=== PATIENT | male | born 1945 | race Caucasian/White ===

== ENCOUNTER 2020-10-11 09:35 | Day surgery (SDC) | payer OTHER, MEDICARE ==
[~2020-10-11 09:35] MED LIST: Lactated Ringers 1,000 ML IV SCH; Midazolam 1 MG/ML 2 ML SDV ONE; Propofol 200 MG/20 ML SDV ONE
--- NOTE | 2020-10-11 11:08 | PCM.PREANE ---
Preanesthetic Assessment - Anesthesia/Transfusion/Family Hx Anesthesia History: Prior Anesthesia Without Reaction Transfusion History: No Prior Transfusion(s) - Review of Systems General: No Symptoms Pulmonary: No Symptoms Cardiovascular: No Symptoms Gastrointestinal: No Symptoms Neurological: No Symptoms Other: Reports: None - Physical Assessment NPO Status Date: 10/11/20 NPO Status Time: 00:00 Vital Signs: Last Vital Signs Temp 96.8 F L 10/11/20 09:45 Pulse 67 10/11/20 09:45 Resp 16 10/11/20 09:45 BP 149/93 H 10/11/20 09:45 Pulse Ox 95 10/11/20 09:45 Height: 5 ft 6 in Weight: 164 lb ASA Class: 3 Mental Status: Alert & Oriented x3 Dentition: Reports: Normal Dentition Thyro-Mental Finger Breadths: 4 Mouth Opening Finger Breadths: 4 ROM/Head Extension: Full Lungs: Clear to Auscultation, Normal Respiratory Effort Cardiovascular: Regular Rate, Regular Rhythm - Allergies Allergies/Adverse Reactions: Allergies Allergy/AdvReac Type Severity Reaction Status Date / Time No Known Allergies Allergy Verified 10/05/20 08:13 - Acknowledgements Anesthesia Type Planned: General Anesthesia Pt an Appropriate Candidate for the Planned Anesthesia: Yes Alternatives and Risks of Anesthesia Discussed w Pt/Guardian: Yes Pt/Guardian Understands and Agrees with Anesthesia Plan: Yes PreAnesthesia Questionnaire HEENT History: Reports: Hard of Hearing, Other (See Below) Other HEENT History: reading glasses, dental implants, joesph hearing aids Cardiovascular History: Reports: Other (See Below) Other Cardiovascular History: situational elevated BP Respiratory History: Reports: Asthma, COPD Gastrointestinal History: Reports: Irritable Bowel Syndrome Genitourinary History: Reports: None, BPH Musculoskeletal History: Reports: Fracture Other Musculoskeletal History: hx fx arm Neurological History: Reports: Brain Injury Psychiatric History: Reports: None Endocrine/Metabolic History: Reports: None Hematologic History: Reports: None Immunologic History: Reports: None Oncologic (Cancer) History: Reports: None Dermatologic History: Reports: Psoriasis - Past Surgical History Head Surgeries/Procedures: Reports: None HEENT Surgical History: Reports: Cataract Surgery, Oral Surgery Cardiovascular Surgical History: Reports: None Respiratory Surgical History: Reports: None GI Surgical History: Reports: Colonoscopy Male Surgical History: Reports: None Endocrine Surgical History: Reports: None Neurological Surgical History: Reports: None Musculoskeletal Surgical History: Reports: Other (See Below) Other Musculoskeletal Surgeries/Procedures:: sx for fx arm Oncologic Surgical History: Reports: None Dermatological Surgical History: Reports: Skin Biopsy - SUBSTANCE USE Tobacco Use Status *Q: Former Tobacco User Tobacco Use Within Last Twelve Months: No Days Per Week of Alcohol Use: 7 Number of Drinks Per Day: 2 Total Drinks Per Week: 14 - HOME MEDS Home Medications: Home Meds Albuterol [Ventolin HFA] 1 - 2 puff INH ASDIRECTED PRN 10/05/20 [History] Aspirin [Adult Aspirin Regimen] 81 mg PO DAILY 10/05/20 [History] Budesonide/Formoterol Fumarate [Symbicort 160-4.5 Mcg Inhaler] 1 puff INH BID 10/05/20 [History] Cholecalciferol (Vitamin D3) [Vitamin D3] 1,000 units PO DAILY 10/05/20 [History] Dextrin [Fiber] 1 dose PO ASDIRECTED 10/05/20 [History] FLUoxetine HCl [Fluoxetine HCl] 20 mg PO DAILY 10/05/20 [History] Flaxseed Oil [Flax Oil] 1 tab PO DAILY 10/05/20 [History] Levothyroxine Sodium [Levoxyl] 100 mcg PO DAILY 10/05/20 [History] Multivitamin 1 tab PO DAILY 10/05/20 [History] Ubidecarenone [COQ-10] 10 mg PO DAILY 10/05/20 [History] Vitamin B Complex 1 tab PO DAILY 10/05/20 [History] - CURRENT (IN HOUSE) MEDS Current Meds: Current Medications Lactated Ringer's (Ringers, Lactated) 1,000 mls @ 125 mls/hr IV ASDIRECTED [facility] Last Admin: 10/11/20 10:10 Dose: 125 mls/hr Documented by: Discontinued Medications Midazolam HCl (Midazolam 1 Mg/Ml 2 Ml Sdv) Confirm Administered Dose 2 mg .ROUTE .STK-MED ONE Stop: 10/11/20 07:26 Propofol (Propofol 200 Mg/20 Ml Sdv) Confirm Administered Dose 600 mg .ROUTE .STK-MED ONE Stop: 10/11/20 07:26
--- NOTE | 2020-10-11 11:27 | PCM.OPNOTE ---
- General Post-Op/Procedure Note Date of Surgery/Procedure: 10/11/20 Operative Procedure(s): Colonoscopy Findings: normal colonoscopy dictation number [id number] Pre Op Diagnosis: screening colonoscopy Post-Op Diagnosis: normal colonoscopy. external hemorrhoidal skin tag Primary Surgeon: Gustavo Mark Pathology: none Complications: None Condition: Good
--- NOTE | 2020-10-11 12:43 | PCM.POSTAN ---
POST ANESTHESIA ASSESSMENT - MENTAL STATUS Mental Status: Alert, Oriented - VITAL SIGNS Vital Signs: Last Vital Signs Temp 96.4 F L 10/11/20 11:54 Pulse 45 L 10/11/20 11:54 Resp 14 10/11/20 11:54 BP 139/76 10/11/20 11:54 Pulse Ox 95 10/11/20 11:54 - RESPIRATORY Respiratory Status: Respiratory Rate WNL, Airway Patent, O2 Saturation Stable - CARDIOVASCULAR CV Status: Pulse Rate WNL, Blood Pressure Stable - GASTROINTESTINAL GI Status: No Symptoms - POST OP HYDRATION Hydration Status: Adequate & Stable
--- NOTE | 2020-10-11 12:44 | PCM48HPAN ---
Post Anesthesia Note - EVALUATION WITHIN 48HRS OF ANESTHETIC Vital Signs in Normal Range: Yes Patient Participated in Evaluation: Yes Respiratory Function Stable: Yes Airway Patent: Yes Cardiovascular Function Stable: Yes Hydration Status Stable: Yes Pain Control Satisfactory: Yes Nausea and Vomiting Control Satisfactory: Yes Mental Status Recovered: Yes Vital Signs: Last Vital Signs Temp 96.4 F L 10/11/20 11:54 Pulse 45 L 10/11/20 11:54 Resp 14 10/11/20 11:54 BP 139/76 10/11/20 11:54 Pulse Ox 95 10/11/20 11:54
--- NOTE | 2020-10-11 15:50 | OR ---
SURGEON: BECKY TRIPATHI MD DATE OF PROCEDURE: 10/11/2020 PREOPERATIVE DIAGNOSIS: Screening colonoscopy. POSTOPERATIVE DIAGNOSIS: Normal colonoscopy. PRIMARY SURGEON: Becky Tripathi MD ANESTHESIA: With Anesthesiology. EXTENT OF THE COLONOSCOPY: To the cecum. BOWEL PREP: Very good. LIMITATIONS: None. REASON FOR PROCEDURE: The patient is a pleasant 75-year-old gentleman who originally said his last colonoscopy was about 10 years ago and was normal. However, this morning, he now says his last one was about 17 years ago at [facility] and he had a polyp removed. The patient said he does have occasional blood in his stools, but says this is with flare-ups of his hemorrhoids. He denies any family history of colon cancer. PROCEDURE IN DETAIL: Physical examination was performed. The major risks and benefits associated with the procedure were explained to the patient in detail. The patient verbalized understanding and was in agreement with the same. The patient was then connected to the appropriate monitoring devices, and IV was started. EKG, pulse oximetry, blood pressure, and capnography were monitored throughout the entire procedure. Oxygen and sedation were provided by the anesthesiologist. The patient was placed in left lateral decubitus position. Sedation was began. After adequate sedation was achieved, a digital rectal exam was performed. No rectal masses or polyps were felt. The patient did have a very long hemorrhoidal skin tag. Now, a well-lubricated Olympus colonoscope was inserted into the rectum and advanced under direct visualization to the level of the cecum. Cecum was identified by both visual and anatomic landmarks. Photographs were taken of the cecal cap. The scope was then slowly withdrawn in a circular fashion looking at the color, texture, anatomy, and integrity of mucosa from the cecum to the anal canal. The patient had a very good bowel prep with just some minimal liquid stools in the cecum which was suctioned and irrigated out for a good look at the mucosa. No polyps or masses were seen in the colon. Scope was retroflexed in the rectum. Scope was completely removed and the procedure was terminated. ENDOSCOPIC DIAGNOSES: 1. Normal colonoscopy. 2. Hemorrhoidal skin tissue. RECOMMENDATIONS: Followup colonoscopy in 10 years or sooner if he develops signs and symptoms such as change in bowel habits or blood in the stool. He may follow up in clinic if he wants for possible removal of the external hemorrhoidal skin tissue. CECIL / YANI /[id number]
== END 2020-10-11 12:30 | disposition home or self-care (01) ==
LOC: MW.SDS 09:35
PROVIDERS: ATTEND Surgery
DX: K64.9 Unspecified hemorrhoids (principal); J44.9 Chronic obstructive pulmonary disease, unspecified; E03.9 Hypothyroidism, unspecified; Z79.82 Long term (current) use of aspirin; Z79.899 Other long term (current) drug therapy; Z79.890 Hormone replacement therapy; Z98.890 Other specified postprocedural states
CPT/HCPCS: 45378; J2250; J2704; J7120; 00811; 99100

== ENCOUNTER 2021-09-14 23:43 | Emergency (ER) | payer MEDICARE, OTHER | END 2021-09-15 01:13 | disposition home or self-care (01) | LOC: MW.ED 23:43 | DX: K40.90 Unilateral inguinal hernia, without obstruction or gangrene, not specified as recurrent (principal); J44.9 Chronic obstructive pulmonary disease, unspecified; Z79.899 Other long term (current) drug therapy | CPT/HCPCS: 99283 ==

== ENCOUNTER 2021-12-05 08:11 | Emergency (ER) | payer MEDICARE, OTHER ==
[2021-12-05] MEDS ORDERED: Sodium Chloride 0.9% 1,000 ML IV ONE (08:57)
[2021-12-05] MEDS ORDERED: Sodium Chloride 0.9% 2.5 ML Syringe FLUSH PRN (08:57)
[2021-12-05] MEDS ORDERED: Sodium Chloride 0.9% 10 ML Syringe FLUSH PRN (08:57)
[2021-12-05] MEDS ORDERED: fentaNYL 50 MCG/ML SDV IVPUSH ONE (09:14)
[2021-12-05] MEDS ORDERED: Ondansetron 4 MG/2 ML SDV IVPUSH ONE (09:14)
[2021-12-05] MEDS ORDERED: Ketorolac 30 MG/ML SDV IVPUSH ONE (09:15)
[2021-12-05 10:00] LABS: CARBON DIOXIDE,CO2 23.8 mmol/L (21.0-32.0); POTASSIUM,K 4.1 mmol/L (3.5-5.1)
[2021-12-05] MEDS ORDERED: Iopamidol 755 MG/ML 500 ML Multipack Bottle IVPUSH STA (10:33)
== END 2021-12-05 11:57 | disposition home or self-care (01) ==
LOC: MW.ED 08:11
DX: K40.90 Unilateral inguinal hernia, without obstruction or gangrene, not specified as recurrent (principal); J45.909 Unspecified asthma, uncomplicated; Z79.899 Other long term (current) drug therapy
CPT/HCPCS: 36415; 74177; 80053; 81003; 83605; 83690; 85025; 96361; 96374; 96375; 99284; J1885; J2405; J3010; J3490; J7030; Q9967

== ENCOUNTER 2022-09-05 12:52 | Emergency (ER) | payer MEDICARE, OTHER | END 2022-09-05 14:38 | disposition home or self-care (01) | LOC: MW.ED 12:52 | DX: B86 Scabies (principal); J44.9 Chronic obstructive pulmonary disease, unspecified | CPT/HCPCS: 99282; 99283 ==

== ENCOUNTER 2023-01-19 17:49 | Emergency (ER) | payer MEDICARE, OTHER ==
[2023-01-19] MEDS ORDERED: Cephalexin 500 MG Cap PO ONE (18:08)
== END 2023-01-19 18:25 | disposition home or self-care (01) ==
LOC: MW.ED 17:49
DX: L03.116 Cellulitis of left lower limb (principal); J44.9 Chronic obstructive pulmonary disease, unspecified; Z79.899 Other long term (current) drug therapy
CPT/HCPCS: 99282; A9270; 99283

== ENCOUNTER 2023-03-25 03:55 | Emergency (ER) | payer MEDICARE, OTHER | END 2023-03-25 04:40 | disposition home or self-care (01) | LOC: MW.ED 03:55 | DX: L03.116 Cellulitis of left lower limb (principal); Z79.899 Other long term (current) drug therapy | CPT/HCPCS: 99283 ==

== ENCOUNTER 2023-03-28 20:53 | Emergency (ER) | payer MEDICARE, OTHER ==
[2023-03-28] MEDS ORDERED: Sodium Chloride 0.9% 1,000 ML IV ONE (21:11)
[2023-03-28] MEDS ORDERED: Ondansetron 4 MG/2 ML SDV IVPUSH ONE (21:11)
[2023-03-28 21:23] LABS: BASOPHILS ABSOLUTE AUTO 0.08 K/uL (0.00-0.20); BASOPHILS PERCENT AUTO 1.7 % (0.0-1.0); EOSINOPHILS ABSOLUTE AUTO 0.54 K/uL (0.00-0.45); EOSINOPHILS PERCENT AUTO 11.6 % (0.0-6.0); HEMATOCRIT 40.9 % (42.0-52.0); HEMOGLOBIN 14.6 g/dL (14.0-18.0); IMMATURE GRAN ABSOLUTE AUTO 0.01 K/uL (0.00-0.05); IMMATURE GRAN PERCENT AUTO 0.2 % (0.0-0.4); LYMPHOCYTES ABSOLUTE AUTO 1.33 K/uL (1.00-4.80); LYMPHOCYTES PERCENT AUTO 28.5 % (24.0-44.0); MEAN CORPUSCULAR HEMOGLOBIN 32.7 pg (28.0-32.0); MEAN CORPUSCULAR HGB CONC 35.7 g/dL (32.0-36.0); MEAN CORPUSCULAR VOLUME 91.5 fL (83.0-99.0); MONOCYTES ABSOLUTE AUTO 0.36 K/uL (0.00-0.80); MONOCYTES PERCENT AUTO 7.7 % (0.0-8.0); NEUTROPHILS ABSOLUTE AUTO 2.34 K/uL (1.80-7.70); NEUTROPHILS PERCENT AUTO 50.3 % (41.0-71.0); PLATELET COUNT,PLT 253 K/uL (150-400); RED BLOOD CELL COUNT 4.47 M/uL (4.52-5.90); WHITE BLOOD CELL COUNT,WBC 4.66 K/uL (3.9-11.3)
[2023-03-28 21:50] LABS: ALBUMIN 3.7 g/dL (3.4-5.0); BILIRUBIN TOTAL 0.5 mg/dL (0.2-1.0); CALCIUM 9.4 mg/dL (8.5-10.1); CARBON DIOXIDE,CO2 27.2 mmol/L (21.0-32.0); CREATININE 1.3 mg/dL (0.8-1.3); EST CRCL DRUG DOSING (CG) 42.37 mL/min; POTASSIUM,K 4.2 mmol/L (3.5-5.1); PROTEIN TOTAL,TP 7.5 g/dL (6.4-8.2)
[2023-03-28] MEDS ORDERED: Acetaminophen 500 MG Tab PO ONE (22:04)
[2023-03-28] MEDS ORDERED: Iopamidol 755 MG/ML 500 ML Multipack Bottle IVPUSH ONE (22:09)
[2023-03-28 23:30] LABS: APPEARANCE,URINE CLEAR; BILIRUBIN,URINE NEGATIVE (NEGATIVE); COLOR,URINE YELLOW; GLUCOSE,URINE NEGATIVE (NEGATIVE); KETONES,URINE NEGATIVE (NEGATIVE); LEUKOCYTE ESTERASE,URINE TRACE (NEGATIVE); NITRITE,URINE NEGATIVE (NEGATIVE); OCCULT BLOOD,URINE SMALL (NEGATIVE); PH,URINE 5.5 (5.0-8.0); PROTEIN,URINE NEGATIVE (NEGATIVE); UROBILINOGEN,URINE 0.2 EU/dL (<2.0)
[2023-03-28 23:34] LABS: BACTERIA,URINE RARE (NEGATIVE); EPITHELIAL CELLS,URINE OCCASIONAL (NONE-FEW); HYALINE CASTS,URINE 0-1 (0-2/LPF)
== END 2023-03-29 01:18 | disposition home or self-care (01) ==
LOC: MW.ED 20:53
DX: K40.90 Unilateral inguinal hernia, without obstruction or gangrene, not specified as recurrent (principal); N13.2 Hydronephrosis with renal and ureteral calculous obstruction; J44.9 Chronic obstructive pulmonary disease, unspecified; Z79.899 Other long term (current) drug therapy
CPT/HCPCS: 36415; 74177; 80053; 81001; 85025; 87086; 96361; 96374; 99284; A9270; J2405; J7030; Q9967

== ENCOUNTER 2023-04-04 13:14 | Emergency (ER) | payer MEDICARE, OTHER | END 2023-04-04 15:10 | disposition home or self-care (01) | LOC: MW.ED 13:14 | DX: L03.116 Cellulitis of left lower limb (principal); J44.9 Chronic obstructive pulmonary disease, unspecified; Z79.899 Other long term (current) drug therapy | CPT/HCPCS: 99283 ==

== ENCOUNTER 2023-04-14 15:38 | Emergency (ER) | payer MEDICARE, OTHER ==
[2023-04-14] MEDS ORDERED: Sodium Chloride 0.9% 10 ML Syringe FLUSH PRN (16:19)
[2023-04-14] MEDS ORDERED: Morphine 2 MG/ML SYRINGE IVPUSH STA (16:19)
[2023-04-14] MEDS ORDERED: Sodium Chloride 0.9% 2.5 ML Syringe FLUSH PRN (16:19)
[2023-04-14] MEDS ORDERED: Ondansetron 4 MG/2 ML SDV IVPUSH STA (16:19)
[2023-04-14 16:53] LABS: BASOPHILS ABSOLUTE AUTO 0.07 K/uL (0.00-0.20); BASOPHILS PERCENT AUTO 1.1 % (0.0-1.0); EOSINOPHILS ABSOLUTE AUTO 0.24 K/uL (0.00-0.45); EOSINOPHILS PERCENT AUTO 3.9 % (0.0-6.0); HEMATOCRIT 38.9 % (42.0-52.0); HEMOGLOBIN 13.8 g/dL (14.0-18.0); IMMATURE GRAN ABSOLUTE AUTO 0.02 K/uL (0.00-0.05); IMMATURE GRAN PERCENT AUTO 0.3 % (0.0-0.4); LYMPHOCYTES ABSOLUTE AUTO 0.89 K/uL (1.00-4.80); LYMPHOCYTES PERCENT AUTO 14.5 % (24.0-44.0); MEAN CORPUSCULAR HEMOGLOBIN 32.9 pg (28.0-32.0); MEAN CORPUSCULAR HGB CONC 35.5 g/dL (32.0-36.0); MEAN CORPUSCULAR VOLUME 92.6 fL (83.0-99.0); MONOCYTES ABSOLUTE AUTO 0.51 K/uL (0.00-0.80); MONOCYTES PERCENT AUTO 8.3 % (0.0-8.0); NEUTROPHILS ABSOLUTE AUTO 4.42 K/uL (1.80-7.70); NEUTROPHILS PERCENT AUTO 71.9 % (41.0-71.0); PLATELET COUNT,PLT 236 K/uL (150-400); WHITE BLOOD CELL COUNT,WBC 6.15 K/uL (3.9-11.3)
[2023-04-14 17:12] LABS: ALBUMIN 3.5 g/dL (3.4-5.0); BILIRUBIN TOTAL 0.3 mg/dL (0.2-1.0); CALCIUM 9.3 mg/dL (8.5-10.1); CARBON DIOXIDE,CO2 28.1 mmol/L (21.0-32.0); EST CRCL DRUG DOSING (CG) 55.08 mL/min; POTASSIUM,K 4.1 mmol/L (3.5-5.1); PROTEIN TOTAL,TP 6.9 g/dL (6.4-8.2)
== END 2023-04-14 17:48 | disposition home or self-care (01) ==
LOC: MW.ED 15:38
DX: K40.90 Unilateral inguinal hernia, without obstruction or gangrene, not specified as recurrent (principal); J44.9 Chronic obstructive pulmonary disease, unspecified
CPT/HCPCS: 36415; 80053; 83605; 85025; 96374; 96375; 99283; J2270; J2405; J3490

== ENCOUNTER 2023-04-18 13:53 | Emergency (ER) | payer MEDICARE, OTHER | END 2023-04-18 15:03 | disposition left against medical advice (07) | LOC: MW.ED 13:53 | DX: Z53.21 Procedure and treatment not carried out due to patient leaving prior to being seen by health care provider (principal) ==

== ENCOUNTER 2023-04-22 22:00 | Emergency (ER) | payer MEDICARE, OTHER ==
[2023-04-22] MEDS ORDERED: Morphine 4 MG/ML Syringe IVPUSH ONE (22:17)
[2023-04-22] MEDS ORDERED: Ondansetron 4 MG/2 ML SDV IVPUSH ONE (22:17)
[2023-04-22 22:39] LABS: BASOPHILS ABSOLUTE AUTO 0.07 K/uL (0.00-0.20); BASOPHILS PERCENT AUTO 1.4 % (0.0-1.0); EOSINOPHILS ABSOLUTE AUTO 0.33 K/uL (0.00-0.45); EOSINOPHILS PERCENT AUTO 6.6 % (0.0-6.0); HEMATOCRIT 39.7 % (42.0-52.0); HEMOGLOBIN 14.1 g/dL (14.0-18.0); IMMATURE GRAN ABSOLUTE AUTO 0.01 K/uL (0.00-0.05); IMMATURE GRAN PERCENT AUTO 0.2 % (0.0-0.4); LYMPHOCYTES ABSOLUTE AUTO 1.43 K/uL (1.00-4.80); LYMPHOCYTES PERCENT AUTO 28.7 % (24.0-44.0); MEAN CORPUSCULAR HEMOGLOBIN 32.7 pg (28.0-32.0); MEAN CORPUSCULAR HGB CONC 35.5 g/dL (32.0-36.0); MEAN CORPUSCULAR VOLUME 92.1 fL (83.0-99.0); MEAN PLATELET VOLUME 7.8 fL (9.4-12.4); MONOCYTES ABSOLUTE AUTO 0.49 K/uL (0.00-0.80); MONOCYTES PERCENT AUTO 9.8 % (0.0-8.0); NEUTROPHILS ABSOLUTE AUTO 2.65 K/uL (1.80-7.70); NEUTROPHILS PERCENT AUTO 53.3 % (41.0-71.0); PLATELET COUNT,PLT 266 K/uL (150-400); RED BLOOD CELL COUNT 4.31 M/uL (4.52-5.90); WHITE BLOOD CELL COUNT,WBC 4.98 K/uL (3.9-11.3)
[2023-04-22 22:53] LABS: INR 1.03 (0.86-1.11); PTT,PARTIAL THROMBOPLSTIN TIME 27.9 SEC (23.9-30.7)
[2023-04-22 23:02] LABS: A/G RATIO 0.9 (0.9-1.6); ALBUMIN 3.6 g/dL (3.4-5.0); BILIRUBIN TOTAL 0.3 mg/dL (0.2-1.0); CALCIUM 9.5 mg/dL (8.5-10.1); CARBON DIOXIDE,CO2 24.2 mmol/L (21.0-32.0); EST CRCL DRUG DOSING (CG) 53.17 mL/min; POTASSIUM,K 3.5 mmol/L (3.5-5.1); PROTEIN TOTAL,TP 7.5 g/dL (6.4-8.2)
[2023-04-22 23:06] LABS: LACTIC ACID 2.3 mmol/L (0.4-2.0)
[2023-04-22] MEDS ORDERED: HYDROmorphone 1 MG/ML Syringe IVPUSH ONE (23:18)
[2023-04-22] MEDS ORDERED: Iopamidol 755 MG/ML 500 ML Multipack Bottle IVPUSH STA (23:19)
[2023-04-22] MEDS ORDERED: Sodium Chloride 0.9% 1,000 ML IV ONE (23:39)
== END 2023-04-23 02:33 | disposition home or self-care (01) ==
LOC: MW.ED 22:00
DX: K40.90 Unilateral inguinal hernia, without obstruction or gangrene, not specified as recurrent (principal); J44.9 Chronic obstructive pulmonary disease, unspecified; Z79.899 Other long term (current) drug therapy
CPT/HCPCS: 36415; 74177; 80053; 83605; 85025; 85610; 85730; 96374; 96375; 99284; J1170; J2270; J2405; J7030; Q9967

== ENCOUNTER 2023-05-02 09:54 | Emergency (ER) | payer MEDICARE, OTHER ==
[2023-05-02 10:55] LABS: BASOPHILS ABSOLUTE AUTO 0.05 K/uL (0.00-0.20); BASOPHILS PERCENT AUTO 1.3 % (0.0-1.0); EOSINOPHILS ABSOLUTE AUTO 0.44 K/uL (0.00-0.45); EOSINOPHILS PERCENT AUTO 11.1 % (0.0-6.0); HEMATOCRIT 37.5 % (42.0-52.0); HEMOGLOBIN 13.1 g/dL (14.0-18.0); IMMATURE GRAN ABSOLUTE AUTO 0.01 K/uL (0.00-0.05); IMMATURE GRAN PERCENT AUTO 0.3 % (0.0-0.4); LYMPHOCYTES ABSOLUTE AUTO 0.95 K/uL (1.00-4.80); LYMPHOCYTES PERCENT AUTO 23.9 % (24.0-44.0); MEAN CORPUSCULAR HEMOGLOBIN 32.6 pg (28.0-32.0); MEAN CORPUSCULAR HGB CONC 34.9 g/dL (32.0-36.0); MEAN CORPUSCULAR VOLUME 93.3 fL (83.0-99.0); MEAN PLATELET VOLUME 8.2 fL (9.4-12.4); MONOCYTES ABSOLUTE AUTO 0.49 K/uL (0.00-0.80); MONOCYTES PERCENT AUTO 12.3 % (0.0-8.0); NEUTROPHILS ABSOLUTE AUTO 2.04 K/uL (1.80-7.70); NEUTROPHILS PERCENT AUTO 51.1 % (41.0-71.0); PLATELET COUNT,PLT 235 K/uL (150-400); RED BLOOD CELL COUNT 4.02 M/uL (4.52-5.90); WHITE BLOOD CELL COUNT,WBC 3.98 K/uL (3.9-11.3)
[2023-05-02 11:13] LABS: A/G RATIO 0.9 (0.9-1.6); ALBUMIN 3.4 g/dL (3.4-5.0); BILIRUBIN TOTAL 0.3 mg/dL (0.2-1.0); CALCIUM 9.3 mg/dL (8.5-10.1); CARBON DIOXIDE,CO2 28.8 mmol/L (21.0-32.0); CREATININE 1.1 mg/dL (0.8-1.3); EST CRCL DRUG DOSING (CG) 50.08 mL/min; POTASSIUM,K 4.5 mmol/L (3.5-5.1)
[2023-05-02] MEDS ORDERED: Sulfamethoxazole/Trimethoprim 800-160 MG Tab PO ONE (11:29)
== END 2023-05-02 12:20 | disposition home or self-care (01) ==
LOC: MW.ED 09:54
DX: L03.116 Cellulitis of left lower limb (principal); J44.9 Chronic obstructive pulmonary disease, unspecified; Z79.899 Other long term (current) drug therapy
CPT/HCPCS: 36415; 80053; 85025; 87070; 87075; 87205; 93971; 99284; A9270; 99283

== ENCOUNTER 2023-05-07 01:10 | Inpatient (IN) | payer MEDICARE, OTHER ==
[2023-05-07] MEDS ORDERED: Sodium Chloride 0.9% 2.5 ML Syringe FLUSH PRN ×2 (01:36→08:02)
[2023-05-07] MEDS ORDERED: Sodium Chloride 0.9% 10 ML Syringe FLUSH PRN ×2 (01:36→08:02)
[2023-05-07] MEDS ORDERED: VANCOmycin 1.25 GM/250 ML 250 ML IV SCH ×2 (02:00)
[2023-05-07 02:01] LABS: BASOPHILS ABSOLUTE AUTO 0.07 K/uL (0.00-0.20); BASOPHILS PERCENT AUTO 1.6 % (0.0-1.0); EOSINOPHILS ABSOLUTE AUTO 0.33 K/uL (0.00-0.45); EOSINOPHILS PERCENT AUTO 7.3 % (0.0-6.0); HEMATOCRIT 39.3 % (42.0-52.0); HEMOGLOBIN 13.8 g/dL (14.0-18.0); IMMATURE GRAN ABSOLUTE AUTO 0.01 K/uL (0.00-0.05); IMMATURE GRAN PERCENT AUTO 0.2 % (0.0-0.4); LYMPHOCYTES ABSOLUTE AUTO 0.98 K/uL (1.00-4.80); LYMPHOCYTES PERCENT AUTO 21.8 % (24.0-44.0); MEAN CORPUSCULAR HEMOGLOBIN 32.9 pg (28.0-32.0); MEAN CORPUSCULAR HGB CONC 35.1 g/dL (32.0-36.0); MEAN CORPUSCULAR VOLUME 93.8 fL (83.0-99.0); MEAN PLATELET VOLUME 7.9 fL (9.4-12.4); MONOCYTES ABSOLUTE AUTO 0.37 K/uL (0.00-0.80); MONOCYTES PERCENT AUTO 8.2 % (0.0-8.0); NEUTROPHILS ABSOLUTE AUTO 2.73 K/uL (1.80-7.70); NEUTROPHILS PERCENT AUTO 60.9 % (41.0-71.0); PLATELET COUNT,PLT 273 K/uL (150-400); RED BLOOD CELL COUNT 4.19 M/uL (4.52-5.90); WHITE BLOOD CELL COUNT,WBC 4.49 K/uL (3.9-11.3)
[2023-05-07 02:30] LABS: A/G RATIO 0.9 (0.9-1.6); ALBUMIN 3.8 g/dL (3.4-5.0); BILIRUBIN TOTAL 0.3 mg/dL (0.2-1.0); CALCIUM 9.7 mg/dL (8.5-10.1); CARBON DIOXIDE,CO2 26.1 mmol/L (21.0-32.0); EST CRCL DRUG DOSING (CG) 53.17 mL/min; PROTEIN TOTAL,TP 7.9 g/dL (6.4-8.2)
[2023-05-07] MEDS ORDERED: diphenhydrAMINE 25 MG Cap PO ONE (03:59)
[2023-05-07] MEDS ORDERED: Morphine 2 MG/ML SYRINGE IVPUSH PRN (08:02)
[2023-05-07] MEDS ORDERED: Acetaminophen 325 MG Tab PO PRN (08:02)
[2023-05-07] MEDS ORDERED: Albuterol/Ipratropium 3.0-0.5 MG/3 ML Neb Soln NEB PRN (08:02)
[2023-05-07] MEDS ORDERED: Naloxone 0.4 MG/ML SDV IVPUSH PRN (08:02)
[2023-05-07] MEDS ORDERED: Ondansetron 4 MG/2 ML SDV IVPUSH PRN (08:02)
[2023-05-07] MEDS: Heparin Sodium 5,000 Units/ML Vial SUBCUT SCH ×2 (09:43→19:35)
[2023-05-07] MEDS: cefTRIAXone 1 GM in Sodium Chloride 0.9% 50 ML IV SCH (09:43)
[2023-05-08] MEDS: Levothyroxine 100 MCG Tab PO SCH ×2 (06:11→07:52)
[2023-05-08 06:18] LABS: BASOPHILS ABSOLUTE AUTO 0.05 K/uL (0.00-0.20); BASOPHILS PERCENT AUTO 1.7 % (0.0-1.0); EOSINOPHILS ABSOLUTE AUTO 0.33 K/uL (0.00-0.45); EOSINOPHILS PERCENT AUTO 11.3 % (0.0-6.0); HEMATOCRIT 35.8 % (42.0-52.0); HEMOGLOBIN 12.7 g/dL (14.0-18.0); IMMATURE GRAN ABSOLUTE AUTO 0.01 K/uL (0.00-0.05); IMMATURE GRAN PERCENT AUTO 0.3 % (0.0-0.4); LYMPHOCYTES ABSOLUTE AUTO 0.81 K/uL (1.00-4.80); LYMPHOCYTES PERCENT AUTO 27.6 % (24.0-44.0); MEAN CORPUSCULAR HEMOGLOBIN 33.1 pg (28.0-32.0); MEAN CORPUSCULAR HGB CONC 35.5 g/dL (32.0-36.0); MEAN CORPUSCULAR VOLUME 93.2 fL (83.0-99.0); MEAN PLATELET VOLUME 7.9 fL (9.4-12.4); MONOCYTES PERCENT AUTO 10.2 % (0.0-8.0); NEUTROPHILS ABSOLUTE AUTO 1.43 K/uL (1.80-7.70); NEUTROPHILS PERCENT AUTO 48.9 % (41.0-71.0); PLATELET COUNT,PLT 237 K/uL (150-400); RED BLOOD CELL COUNT 3.84 M/uL (4.52-5.90); WHITE BLOOD CELL COUNT,WBC 2.93 K/uL (3.9-11.3)
[2023-05-08 06:55] LABS: CALCIUM 8.7 mg/dL (8.5-10.1); CARBON DIOXIDE,CO2 25.3 mmol/L (21.0-32.0); CREATININE 0.9 mg/dL (0.8-1.3); EST CRCL DRUG DOSING (CG) 59.07 mL/min; POTASSIUM,K 3.9 mmol/L (3.5-5.1)
[2023-05-08] MEDS: cefTRIAXone 1 GM in Sodium Chloride 0.9% 50 ML IV SCH (08:29)
[2023-05-08] MEDS: Heparin Sodium 5,000 Units/ML Vial SUBCUT SCH ×2 (08:30→19:59)
[2023-05-08] MEDS ORDERED: diphenhydrAMINE 50 MG Cap PO ONE (23:40)
[2023-05-09 05:58] LABS: BASOPHILS ABSOLUTE AUTO 0.06 K/uL (0.00-0.20); BASOPHILS PERCENT AUTO 2.1 % (0.0-1.0); EOSINOPHILS ABSOLUTE AUTO 0.28 K/uL (0.00-0.45); EOSINOPHILS PERCENT AUTO 9.6 % (0.0-6.0); HEMATOCRIT 34.3 % (42.0-52.0); HEMOGLOBIN 11.9 g/dL (14.0-18.0); IMMATURE GRAN ABSOLUTE AUTO 0.02 K/uL (0.00-0.05); IMMATURE GRAN PERCENT AUTO 0.7 % (0.0-0.4); LYMPHOCYTES ABSOLUTE AUTO 0.89 K/uL (1.00-4.80); LYMPHOCYTES PERCENT AUTO 30.6 % (24.0-44.0); MEAN CORPUSCULAR HEMOGLOBIN 32.3 pg (28.0-32.0); MEAN CORPUSCULAR HGB CONC 34.7 g/dL (32.0-36.0); MEAN CORPUSCULAR VOLUME 93.2 fL (83.0-99.0); MONOCYTES ABSOLUTE AUTO 0.31 K/uL (0.00-0.80); MONOCYTES PERCENT AUTO 10.7 % (0.0-8.0); NEUTROPHILS ABSOLUTE AUTO 1.35 K/uL (1.80-7.70); NEUTROPHILS PERCENT AUTO 46.3 % (41.0-71.0); PLATELET COUNT,PLT 239 K/uL (150-400); RED BLOOD CELL COUNT 3.68 M/uL (4.52-5.90); WHITE BLOOD CELL COUNT,WBC 2.91 K/uL (3.9-11.3)
[2023-05-09 06:15] LABS: CALCIUM 8.8 mg/dL (8.5-10.1); CARBON DIOXIDE,CO2 26.1 mmol/L (21.0-32.0); CREATININE 0.8 mg/dL (0.8-1.3); EST CRCL DRUG DOSING (CG) 66.46 mL/min; POTASSIUM,K 3.7 mmol/L (3.5-5.1)
[2023-05-09] MEDS: Levothyroxine 100 MCG Tab PO SCH (08:41)
[2023-05-09] MEDS: cefTRIAXone 1 GM in Sodium Chloride 0.9% 50 ML IV SCH (08:41)
[2023-05-09] MEDS: Heparin Sodium 5,000 Units/ML Vial SUBCUT SCH (08:42)
== END 2023-05-09 14:47 | disposition home health service (06) | DRG 603 ==
LOC: MW.ED 01:10 → MW.MS 03:44 → OBSVTOIN 09:27 → MW.MS 12:25
PROVIDERS: ADMIT Internal Medicine; ATTEND Internal Medicine
DX: L03.116 Cellulitis of left lower limb (principal); J44.9 Chronic obstructive pulmonary disease, unspecified; N40.0 Benign prostatic hyperplasia without lower urinary tract symptoms; J42 Unspecified chronic bronchitis; Z97.4 Presence of external hearing-aid; Z98.49 Cataract extraction status, unspecified eye; Z79.890 Hormone replacement therapy; Z98.890 Other specified postprocedural states; Z79.899 Other long term (current) drug therapy
CPT/HCPCS: 36415; 73590; 80053; 80202; 85025; 93971; 96365; 99285; A9270; J3370; J3490; J7050; 80048; 93306; 99283; G0378; J0696; J1644

== ENCOUNTER 2023-05-09 21:45 | Emergency (ER) | payer MEDICARE, OTHER ==
[2023-05-10] MEDS ORDERED: Sodium Chloride 0.9% 2.5 ML Syringe FLUSH PRN (00:04)
[2023-05-10] MEDS ORDERED: Sodium Chloride 0.9% 10 ML Syringe FLUSH PRN (00:04)
== END 2023-05-10 00:17 | disposition left against medical advice (07) ==
LOC: MW.ED 21:45
DX: R10.9 Unspecified abdominal pain (principal); J45.909 Unspecified asthma, uncomplicated; Z79.899 Other long term (current) drug therapy
CPT/HCPCS: 99282; 99283

== ENCOUNTER 2023-05-14 22:30 | Emergency (ER) | payer MEDICARE, OTHER ==
[2023-05-14] MEDS ORDERED: Sodium Chloride 0.9% 10 ML Syringe FLUSH PRN (22:49)
[2023-05-14] MEDS ORDERED: Sodium Chloride 0.9% 2.5 ML Syringe FLUSH PRN (22:49)
[2023-05-14] MEDS ORDERED: Morphine 2 MG/ML SYRINGE IVPUSH ONE (23:04)
[2023-05-14 23:26] LABS: BASOPHILS ABSOLUTE AUTO 0.07 K/uL (0.00-0.20); BASOPHILS PERCENT AUTO 1.7 % (0.0-1.0); EOSINOPHILS ABSOLUTE AUTO 0.25 K/uL (0.00-0.45); EOSINOPHILS PERCENT AUTO 6.2 % (0.0-6.0); HEMATOCRIT 39.1 % (42.0-52.0); HEMOGLOBIN 13.7 g/dL (14.0-18.0); LYMPHOCYTES ABSOLUTE AUTO 0.89 K/uL (1.00-4.80); MEAN CORPUSCULAR HEMOGLOBIN 32.8 pg (28.0-32.0); MEAN CORPUSCULAR VOLUME 93.5 fL (83.0-99.0); MEAN PLATELET VOLUME 7.9 fL (9.4-12.4); MONOCYTES ABSOLUTE AUTO 0.27 K/uL (0.00-0.80); MONOCYTES PERCENT AUTO 6.7 % (0.0-8.0); NEUTROPHILS ABSOLUTE AUTO 2.57 K/uL (1.80-7.70); NEUTROPHILS PERCENT AUTO 63.4 % (41.0-71.0); PLATELET COUNT,PLT 325 K/uL (150-400); RED BLOOD CELL COUNT 4.18 M/uL (4.52-5.90); WHITE BLOOD CELL COUNT,WBC 4.05 K/uL (3.9-11.3)
[2023-05-14 23:49] LABS: A/G RATIO 0.9 (0.9-1.6); ALBUMIN 3.6 g/dL (3.4-5.0); BILIRUBIN TOTAL 0.2 mg/dL (0.2-1.0); CARBON DIOXIDE,CO2 27.1 mmol/L (21.0-32.0); CREATININE 1.1 mg/dL (0.8-1.3); EST CRCL DRUG DOSING (CG) 48.33 mL/min; POTASSIUM,K 3.7 mmol/L (3.5-5.1); PROTEIN TOTAL,TP 7.5 g/dL (6.4-8.2)
[2023-05-15] MEDS ORDERED: Iopamidol 755 MG/ML 500 ML Multipack Bottle IVPUSH STA (00:06)
[2023-05-15] MEDS ORDERED: Morphine 2 MG/ML SYRINGE IVPUSH ONE (00:47)
[2023-05-15] MEDS ORDERED: Morphine 4 MG/ML Syringe IVPUSH ONE (01:27)
[2023-05-15] MEDS ORDERED: LORazepam 2 MG/ML SDV ONE (01:47)
[2023-05-15] MEDS ORDERED: LORazepam 2 MG/ML SDV IVPUSH ONE (01:47)
== END 2023-05-15 07:29 | disposition home or self-care (01) ==
LOC: MW.ED 22:30
DX: K40.90 Unilateral inguinal hernia, without obstruction or gangrene, not specified as recurrent (principal); J45.909 Unspecified asthma, uncomplicated; Z79.899 Other long term (current) drug therapy
CPT/HCPCS: 36415; 74177; 80053; 83605; 85025; 96374; 96375; 96376; 99284; J2060; J2270; J3490; Q9967

== ENCOUNTER 2023-05-19 21:10 | Emergency (ER) | payer MEDICARE, OTHER | END 2023-05-19 22:41 | disposition home or self-care (01) | LOC: MW.ED 21:10 | DX: I87.313 Chronic venous hypertension (idiopathic) with ulcer of bilateral lower extremity (principal); J44.9 Chronic obstructive pulmonary disease, unspecified | CPT/HCPCS: 99283 ==

== ENCOUNTER 2023-07-09 04:18 | Emergency (ER) | payer MEDICARE, OTHER ==
[2023-07-09] MEDS: Hydrocortisone 1% Crm 30 GM Tube TOP ONE (07:14)
== END 2023-07-09 07:38 | disposition home or self-care (01) ==
LOC: MW.ED 04:18
DX: F03.90 Unspecified dementia, unspecified severity, without behavioral disturbance, psychotic disturbance, mood disturbance, and anxiety (principal); E03.9 Hypothyroidism, unspecified; J44.89 Other specified chronic obstructive pulmonary disease; Z79.51 Long term (current) use of inhaled steroids; Z79.899 Other long term (current) drug therapy; Z75.8 Other problems related to medical facilities and other health care
CPT/HCPCS: 99284; A9270; 99283

== ENCOUNTER 2023-07-25 00:09 | Emergency (ER) | payer MEDICARE, OTHER ==
[2023-07-25] MEDS: Cefdinir 300 MG Cap PO ONE (00:45)
== END 2023-07-25 01:04 | disposition home or self-care (01) ==
LOC: MW.ED 00:09
DX: L03.116 Cellulitis of left lower limb (principal); I87.2 Venous insufficiency (chronic) (peripheral); J44.89 Other specified chronic obstructive pulmonary disease; Z79.899 Other long term (current) drug therapy; Z79.51 Long term (current) use of inhaled steroids
CPT/HCPCS: 99283; A9270

== ENCOUNTER 2024-05-18 16:40 | Observation (INO) | payer MEDICARE, OTHER ==
[2024-05-18 17:23] LABS: BASOPHILS ABSOLUTE AUTO 0.04 K/uL (0.00-0.20); EOSINOPHILS ABSOLUTE AUTO 0.17 K/uL (0.00-0.45); EOSINOPHILS PERCENT AUTO 4.4 % (0.0-6.0); HEMATOCRIT 30.6 % (42.0-52.0); HEMOGLOBIN 11.1 g/dL (14.0-18.0); IMMATURE GRAN ABSOLUTE AUTO 0.01 K/uL (0.00-0.05); IMMATURE GRAN PERCENT AUTO 0.3 % (0.0-0.4); LYMPHOCYTES ABSOLUTE AUTO 0.75 K/uL (1.00-4.80); LYMPHOCYTES PERCENT AUTO 19.2 % (24.0-44.0); MEAN CORPUSCULAR HEMOGLOBIN 31.9 pg (28.0-32.0); MEAN CORPUSCULAR HGB CONC 36.3 g/dL (32.0-36.0); MEAN CORPUSCULAR VOLUME 87.9 fL (83.0-99.0); MEAN PLATELET VOLUME 8.1 fL (9.4-12.4); MONOCYTES ABSOLUTE AUTO 0.39 K/uL (0.00-0.80); NEUTROPHILS ABSOLUTE AUTO 2.54 K/uL (1.80-7.70); NEUTROPHILS PERCENT AUTO 65.1 % (41.0-71.0); PLATELET COUNT,PLT 141 K/uL (150-400); RED BLOOD CELL COUNT 3.48 M/uL (4.52-5.90)
[2024-05-18 17:55] LABS: CARBON DIOXIDE,CO2 29.3 mmol/L (21.0-32.0); CREATININE 2.3 mg/dL (0.8-1.3); EST CRCL DRUG DOSING (CG) 23.55 mL/min; POTASSIUM,K 2.9 mmol/L (3.5-5.1); TSH ULTRASENSITIVE 8.29 uIU/mL (0.36-3.74)
[2024-05-18 18:14] LABS: T4 FREE 0.74 ng/dL (0.76-1.46)
[2024-05-18] MEDS: Potassium Chloride 10 MEQ in Premix Bag 1 BAG IV SCH (19:13)
[2024-05-18] MEDS: Sodium Chloride 0.9% 1,000 ML IV ONE (19:13)
[2024-05-18] MEDS: Potassium Chloride 20 MEQ Tab.ER PO ONE ×2 (19:14→23:27)
[2024-05-18] MEDS: Sodium Chloride 0.9% 10 ML Syringe FLUSH PRN (19:21)
[2024-05-18] MEDS: Sodium Chloride 0.9% 2.5 ML Syringe FLUSH PRN (19:21)
[2024-05-18] MEDS ORDERED: Melatonin 3 MG Tab PO PRN (22:26)
[2024-05-18] MEDS ORDERED: Ondansetron 4 MG/2 ML SDV IVPUSH PRN (22:26)
[2024-05-18] MEDS ORDERED: Acetaminophen 650 MG Supp RECTAL PRN (22:26)
[2024-05-18] MEDS ORDERED: Albuterol/Ipratropium 3.0-0.5 MG/3 ML Neb Soln NEB PRN (22:26)
[2024-05-18] MEDS ORDERED: Polyethylene Glycol 3350 Powder 17 GM Packet PO PRN (22:26)
[2024-05-18] MEDS ORDERED: hydrALAZINE 20 MG/ML SDV IVPUSH PRN (22:33)
[2024-05-18] MEDS: Tamsulosin 0.4 MG Cap.ER PO ONE ×2 (22:56→23:27)
[2024-05-18 23:04] LABS: MAGNESIUM 1.6 mg/dL (1.8-2.4)
[2024-05-18] MEDS: Thiamine 200 MG/2 ML MDV IVPUSH SCH (23:27)
[2024-05-18] MEDS: Folic Acid 1 MG Tab PO SCH (23:27)
[2024-05-18] MEDS: Sodium Chloride 0.9% 1,000 ML IV SCH (23:29)
[2024-05-18] MEDS: hydrALAZINE 20 MG/ML SDV IVPUSH ONE (23:39)
[2024-05-19 00:19] LABS: APPEARANCE,URINE CLEAR; BILIRUBIN,URINE NEGATIVE (NEGATIVE); COLOR,URINE YELLOW; GLUCOSE,URINE NEGATIVE (NEGATIVE); KETONES,URINE NEGATIVE (NEGATIVE); OCCULT BLOOD,URINE MODERATE (NEGATIVE); PH,URINE 6.5 (5.0-8.0); PROTEIN,URINE TRACE mg/dL (NEGATIVE); UROBILINOGEN,URINE 0.2 EU/dL (<2.0)
[2024-05-19 00:20] LABS: BACTERIA,URINE NOT SEEN (NEGATIVE); EPITHELIAL CELLS,URINE RARE (NONE-FEW); LEUKOCYTE ESTERASE,URINE NEGATIVE (NEGATIVE); NITRITE,URINE NEGATIVE (NEGATIVE); WBC,URINE 0-1 (0-5/HPF)
[2024-05-19 05:53] LABS: BASOPHILS ABSOLUTE AUTO 0.05 K/uL (0.00-0.20); BASOPHILS PERCENT AUTO 1.2 % (0.0-1.0); EOSINOPHILS ABSOLUTE AUTO 0.19 K/uL (0.00-0.45); EOSINOPHILS PERCENT AUTO 4.6 % (0.0-6.0); HEMATOCRIT 29.1 % (42.0-52.0); HEMOGLOBIN 10.5 g/dL (14.0-18.0); IMMATURE GRAN ABSOLUTE AUTO 0.02 K/uL (0.00-0.05); IMMATURE GRAN PERCENT AUTO 0.5 % (0.0-0.4); LYMPHOCYTES ABSOLUTE AUTO 0.78 K/uL (1.00-4.80); LYMPHOCYTES PERCENT AUTO 18.7 % (24.0-44.0); MEAN CORPUSCULAR HEMOGLOBIN 31.9 pg (28.0-32.0); MEAN CORPUSCULAR HGB CONC 36.1 g/dL (32.0-36.0); MEAN CORPUSCULAR VOLUME 88.4 fL (83.0-99.0); MEAN PLATELET VOLUME 8.9 fL (9.4-12.4); MONOCYTES ABSOLUTE AUTO 0.41 K/uL (0.00-0.80); MONOCYTES PERCENT AUTO 9.8 % (0.0-8.0); NEUTROPHILS ABSOLUTE AUTO 2.72 K/uL (1.80-7.70); NEUTROPHILS PERCENT AUTO 65.2 % (41.0-71.0); PLATELET COUNT,PLT 136 K/uL (150-400); RED BLOOD CELL COUNT 3.29 M/uL (4.52-5.90); WHITE BLOOD CELL COUNT,WBC 4.17 K/uL (3.9-11.3)
[2024-05-19] MEDS: Levothyroxine 100 MCG Tab PO SCH (06:02)
[2024-05-19 06:16] LABS: CALCIUM 8.4 mg/dL (8.5-10.1); CARBON DIOXIDE,CO2 22.6 mmol/L (21.0-32.0); CREATININE 2.1 mg/dL (0.8-1.3); EST CRCL DRUG DOSING (CG) 25.79 mL/min; MAGNESIUM 1.5 mg/dL (1.8-2.4); POTASSIUM,K 3.4 mmol/L (3.5-5.1)
[2024-05-19] MEDS ORDERED: Albuterol 8 GM Inhaler INH PRN (10:16)
[2024-05-19] MEDS: Acetaminophen 325 MG Tab PO PRN (10:52)
[2024-05-19] MEDS: Morphine 2 MG/ML SYRINGE IVPUSH PRN (11:41)
[2024-05-19] MEDS: Formoterol/Mometasone 200-5 MCG 8.8 GM Inhaler INH SCH (12:21)
[2024-05-19] MEDS: LORazepam 1 MG Tab PO PRN (15:46)
[2024-05-19] MEDS ORDERED: Tamsulosin 0.4 MG Cap.ER PO SCH (21:00)
== END 2024-05-19 16:50 ==
LOC: MW.ED 16:40 → MW.MS 19:08
PROVIDERS: ADMIT Family Medicine; ATTEND Family Medicine
DX: N17.9 Acute kidney failure, unspecified (principal); N32.0 Bladder-neck obstruction; N40.0 Benign prostatic hyperplasia without lower urinary tract symptoms; N20.0 Calculus of kidney; J44.9 Chronic obstructive pulmonary disease, unspecified; F03.90 Unspecified dementia, unspecified severity, without behavioral disturbance, psychotic disturbance, mood disturbance, and anxiety; E03.9 Hypothyroidism, unspecified; Z79.890 Hormone replacement therapy; Z79.899 Other long term (current) drug therapy
CPT/HCPCS: 36415; 51702; 70450; 74176; 80048; 80307; 81001; 83735; 83880; 84439; 84443; 84484; 85025; 93005; 96365; 99285; A9270; J0360; J2270; J3411; J3480; J7030; 51798; 96361; 96366; 96375; 96376; G0378; J3490